=== PATIENT | female | born 1990 | race Caucasian/White ===

== ENCOUNTER 2024-05-25 18:43 | Emergency (ER) | payer OTHER ==
[~2024-05-25] VITALS: Ht 170.2 cm; Wt 76.2 kg
[2024-05-25 18:51] VITALS: BP_SYST 132; PULSE 63; RESP 20; O2SAT 100
[2024-05-25] MEDS ORDERED: EPINEPHRINE HCL/PF 1 MG/ML AMP ONE (18:58)
[2024-05-25 19:01] VITALS: BP_SYST 132; PULSE 56; RESP 20; TEMP 97.7; O2SAT 100
[2024-05-25] MEDS: methylPREDNISolone SOD SUCC/PF 62.5 MG/ML VIAL IM ONE (19:02)
[2024-05-25] MEDS: EPINEPHrine HCL 1 MG/ML VIAL SUBCUT ONE (19:03)
[2024-05-25] MEDS ORDERED: EPIN0.3P3 IM (19:21)
== END 2024-05-25 19:40 | disposition home or self-care (01) ==
LOC: SED 18:43
DX: T63.441A Toxic effect of venom of bees, accidental (unintentional), initial encounter (principal); Y92.89 Other specified places as the place of occurrence of the external cause
CPT/HCPCS: 99284; 96372; J0171; J2930